=== PATIENT | male | born 1965 | race African-American/Black ===

== ENCOUNTER 2017-03-30 09:46 | Emergency (ER) | payer SELFPAY ==
[2017-03-30] MEDS ORDERED: Dexamethasone 4 mg/ml Vial ONE (12:05)
== END 2017-03-30 11:57 | disposition home or self-care (01) ==
LOC: ERS 09:46
DX: M70.22 Olecranon bursitis, left elbow (principal); I10 Essential (primary) hypertension; F32.9 Major depressive disorder, single episode, unspecified
CPT/HCPCS: 99283; J1100

== ENCOUNTER 2017-04-12 13:19 | Emergency (ER) | payer SELFPAY | END 2017-04-12 15:10 | disposition home or self-care (01) | LOC: ERS 13:19 | DX: J11.1 Influenza due to unidentified influenza virus with other respiratory manifestations (principal); E78.5 Hyperlipidemia, unspecified; I10 Essential (primary) hypertension; F32.9 Major depressive disorder, single episode, unspecified; F17.220 Nicotine dependence, chewing tobacco, uncomplicated | CPT/HCPCS: 99283 ==

== ENCOUNTER 2021-03-23 09:26 | Outpatient (CLI) | payer OTHER | END 2021-03-23 09:27 | disposition home or self-care (01) | LOC: BICMRI 09:26 | PROVIDERS: ATTEND Family Medicine | DX: M23.91 Unspecified internal derangement of right knee (principal); M25.461 Effusion, right knee ==